=== PATIENT | female | born 1995 | race Caucasian/White ===

== ENCOUNTER 2017-05-08 19:50 | Emergency (ER) | payer OTHER ==
[~2017-05-08] VITALS: Ht 160 cm; Wt 55.8 kg
[2017-05-08 19:52] VITALS: BP 116/68
[2017-05-08] MEDS ORDERED: FLUORESCEIN OPTH STRIP 1 MG OP ONE (20:00)
[2017-05-08] MEDS ORDERED: TETRACAINE 0.5% OPTH SOL 2 ML BTL OP ONE (20:00)
--- NOTE | 2017-05-08 20:32 | NUR ---
Fernando adams in [facility] - 05/08/17 at 2033 by [facility] AMBULATED TO ER BED 7
--- NOTE | 2017-05-08 20:32 | NUR ---
AMBULATED TO ER BED 8
--- NOTE | 2017-05-08 20:35 | NUR ---
PATIENT PRESENTS TO ED WITH c/o rt eye pain . PT DENIES N/V/D; SKIN IS PINK/WARM/DRY; AAOX4 WITH EVEN AND STEADY GAIT; LUNGS CLEAR BL; HR EVEN AND REGULAR; PT DENIES ANY FEVER, CP, SOB, OR COUGH AT THIS TIME; PATIENT STATES PAIN OF 10/10 AT THIS TIME; VSS; PATIENT POSITIONED FOR COMFORT; HOB ELEVATED; BEDRAILS UP X2; BED DOWN. ER MD MADE AWARE OF PT STATUS.
[2017-05-08 21:30] VITALS: BP 116/68
--- NOTE | 2017-05-08 21:30 | NUR ---
Patient discharged with v/s stable. Written and verbal after care instructions given and explained. Patient verbalized understanding. Ambulatory with steady gait. All questions addressed prior to discharge. Advised to follow up with PMD.
== END 2017-05-08 21:30 | disposition home or self-care (01) ==
LOC: MED 19:50
DX: H10.9 Unspecified conjunctivitis (principal)
CPT/HCPCS: 99283